=== PATIENT | female | born 1965 | race Caucasian/White ===

== ENCOUNTER 2020-04-05 13:30 | Outpatient (CLI) | payer BC, SELFPAY ==
--- NOTE | ~2020-04-05 | MM_ITS ---
EXAMINATION: MM screening [facility] BI w ernesto HISTORY: Screening mammogram TECHNIQUE: Craniocaudal and mediolateral oblique 3-D tomosynthesis images were obtained and synthetic 2-D images were generated. CAD analysis was submitted and interpreted. COMPARISON: 05/14/2018, 12/06/2016, 11/02/2015 BREAST PARENCHYMAL COMPOSITION: The breasts are heterogeneously dense, which may obscure small masses . FINDINGS: There is no evidence of suspicious mass, calcification, or architectural distortion to sugg est malignancy in either breast. There has been no suspicious interval change. IMPRESSION: 1. No mammographic evidence of malignancy. 2. Recommend routine screening mammography in one year. BI-RADS Category 1: Negative Reviewed, dictated and finalized at location A. YER OPERATOR
== END 2020-04-05 13:31 | disposition home or self-care (01) ==
LOC: ANHIMG 13:33
PROVIDERS: PCP Family Medicine; Visit Provider Student in an Organized Health Care Education/Training Program
DX: Z12.31 Encounter for screening mammogram for malignant neoplasm of breast (principal)
CPT/HCPCS: 77063; 77067

== ENCOUNTER 2021-05-16 00:10 | Day surgery (SDC) | payer BC, SELFPAY ==
[2021-05-03 15:49] VITALS: BMI 20.6
--- NOTE | 2021-05-16 09:26 | PM.HPGS ---
History of Present Illness History of Present Illness Consent: Risks, benefits, and alternatives have been discussed and questions answered. Patient agrees to proceed with procedure. Chief complaint: neoplasm screening Narrative: Felicity Russell is a 55 year old female here for screening colonoscopy, she had one about 10 years ago because abdominal discomfort and was normal. Review of Systems Constitutional: Constitutional: Denies headache(s) and Denies weakness Eyes: Eyes: Denies blurry vision ENT: Reports Normal hearing present, Denies headache(s) and Denies neck pain Cardiovascular: Cardiovascular: Denies chest pain and Denies dyspnea Respiratory: Respiratory: Denies dyspnea Gastrointestinal: Gastrointestinal: Reports no additional gastrointestinal complaints Genitourinary: Genitourinary: Denies dysuria Musculoskeletal: Musculoskeletal: Denies neck pain Integumentary/Breasts: Skin/Breast: Denies dry skin Neurologic: Reports Normal hearing present, Denies headache(s) and Denies weakness Psychiatric: Psychiatric: Denies anxiety Endocrine: Endocrine: Denies change in body appearance Hematologic/Lymphatic: Hematologic/Lymphatic: Denies easy bleeding Allergic/Immunologic: Allergic/Immunologic: Denies urticaria PMFSH Past Medical History Medical History Acute sinusitis, unspecified BMI 21.0-21.9, adult Chronic anxiety Chronic pain of right ankle Colon cancer screening Contusion, nose Mixed hyperlipidemia Vitamin B12 deficiency anemia Vitamin D deficiency, unspecified Surgical History Surgical History H/O hernia repair History of ankle surgery History of endometrial ablation Family History Family History Grandparent Family history of malignant neoplasm of breast in first degree relative Family history of malignant neoplasm Family history of Alzheimer's disease, Onset Age: 91 Mother Family history of thyroid disease Patient's mother is in good health Family history of colonic diverticulitis Father Patient's father is in good health Other Family history of malignant neoplasm of breast Social History Social History Smoking status: Never smoker Second hand tobacco smoke exposure: No Alcohol intake: current Drinks per week: 2 Alcohol use details: WINE Substance use: never Substance use type: does not use Living arrangements: with family Spiritual care concerns: No Meds Home Medications and Allergies Home Medications Medication Instructions Recorded Confirmed Type calcium citrate 315 mg 1 tablet PO DAILY 04/27/19 05/03/21 History calcium-vitamin D3 6.25 mcg (250 unit) tablet multivitamin 1 tablet PO DAILY 04/27/19 05/03/21 History vitamin E 200 unit capsule 200 unit PO DAILY 04/27/19 05/03/21 History cholecalciferol (vitamin D3) 25 1,000 unit PO DAILY 09/23/19 05/03/21 History mcg (1,000 unit) capsule cyanocobalamin (vitamin B-12) 1,000 mcg PO DAILY 03/23/20 05/03/21 History 1,000 mcg tablet venlafaxine 75 mg capsule,extended 75 mg PO DAILY #30 cap 09/21/20 05/03/21 Rx release 24 hr sodium,potassium,mag sulfates See Rx Instructions .ROUTE 05/14/21 Rx [Suprep Bowel Prep Kit] .COMPLEX #1 dose pk Allergies Allergy/AdvReac Type Severity Reaction Status Date / Time No Known Allergies Allergy Verified 05/04/21 14:17 Exam Const: General: comfortable and no acute distress HENMT: General nose exam: Normal nares present Eyes: General: appearance normal, both eyes and all related structures Neck: Neck: no JVD Resp: Auscultation: clear to auscultation bilaterally Cardio: Rate: regular rate Rhythm: regular rhythm GI: Inspection: non-distended GI Palp: Yes Soft to palpation Skin: Genera
[2021-05-16 09:28] VITALS: BP 116/93; PULSE 107; RESP 18; TEMP 36.6; O2SAT 100
[2021-05-16] MEDS: LACTATED RINGERS 1,000 ML 150 ML IV CONT (09:42)
--- NOTE | 2021-05-16 09:46 | WPDANESEPPF ---
Anes - Initial Pre Proc Eval Procedure: Operation Date: 05/16/21 10:30 Proposed Procedures p Screening Colonoscopy - Brodie Palomo MD Date/Time: 05/16/21 09:46 Surgeon: Brodie Palomo MD Pre Op Diagnosis: neoplasm screening Patient Data Age: 55 Gender: F Height: 1.68 m Weight: 57.1 kg Last Vital Signs Temp 97.9 F 05/16/21 09:28 Pulse 107 H 05/16/21 09:28 Resp 18 05/16/21 09:28 BP 116/93 H 05/16/21 09:28 Pulse Ox 100 05/16/21 09:28 Allergies Allergy/AdvReac Type Severity Reaction Status Date / Time No Known Allergies Allergy Verified 05/16/21 09:27 Home Medications Medication Instructions Recorded Confirmed Type calcium citrate 315 mg 1 tablet PO DAILY 04/27/19 05/03/21 History calcium-vitamin D3 6.25 mcg (250 unit) tablet multivitamin 1 tablet PO DAILY 04/27/19 05/03/21 History vitamin E 200 unit capsule 200 unit PO DAILY 04/27/19 05/03/21 History cholecalciferol (vitamin D3) 25 1,000 unit PO DAILY 09/23/19 05/03/21 History mcg (1,000 unit) capsule cyanocobalamin (vitamin B-12) 1,000 mcg PO DAILY 03/23/20 05/03/21 History 1,000 mcg tablet venlafaxine 75 mg capsule,extended 75 mg PO DAILY #30 cap 09/21/20 05/03/21 Rx release 24 hr sodium,potassium,mag sulfates See Rx Instructions .ROUTE 05/14/21 Rx [Suprep Bowel Prep Kit] .COMPLEX #1 dose pk Patient hx anesthesia problems: none Family hx anesthesia problems: none Results Review: All pre-operative results and documents have been reviewed as part of the pre-operative evaluation. [facility] Past Medical History Medical History Acute sinusitis, unspecified BMI 21.0-21.9, adult Chronic anxiety Chronic pain of right ankle Colon cancer screening Contusion, nose Mixed hyperlipidemia Vitamin B12 deficiency anemia Vitamin D deficiency, unspecified Surgical History Surgical History H/O hernia repair History of ankle surgery History of endometrial ablation Family History Family History Grandparent Family history of malignant neoplasm of breast in first degree relative Family history of malignant neoplasm Family history of Alzheimer's disease, Onset Age: 91 Mother Family history of thyroid disease Patient's mother is in good health Family history of colonic diverticulitis Father Patient's father is in good health Other Family history of malignant neoplasm of breast Social History Social History Smoking status: Never smoker Second hand tobacco smoke exposure: No Alcohol intake: current Drinks per week: 2 Alcohol use details: WINE Substance use: never Substance use type: does not use Living arrangements: with family Spiritual care concerns: No Anes - Eval Final PreProcedure Day of Procedure 05/16/21 09:46 Patient weight: normal Heart: regular rate and rhythm Lungs: clear to auscultation Airway: Mallampati scale class II Neurological: alert and oriented ASA classification: II Emergent: no Anesthetic plan: proceed Anesthesia type and monitoring: general GIVS and standard monitoring Results Review: All pre-operative results and documents have been reviewed as part of the pre-operative evaluation. Informed Consent: The patient's anesthetic plan and its attendant risks and benefits were discussed with the patient/family/POA. Questions were solicited and answers provided to the satisfaction of the patient/family/POA.
[2021-05-16 10:10] VITALS: BP 94/65; PULSE 68; RESP 23; O2SAT 100
[2021-05-16 10:20] VITALS: BP 99/68; PULSE 71; RESP 16; O2SAT 100
[2021-05-16 10:30] VITALS: BP 102/73; PULSE 69; RESP 14; O2SAT 100
== END 2021-05-16 10:43 | disposition home or self-care (01) ==
PROVIDERS: PCP Family Medicine; Visit Provider Internal Medicine Gastroenterology
PROC: 0DJD8ZZ Inspection of Lower Intestinal Tract, Via Natural or Artificial Opening Endoscopic (ICD-10-PCS; CPT 45378; principal; 2021-05-16 10:30)
DX: Z12.11 Encounter for screening for malignant neoplasm of colon (principal); D12.4 Benign neoplasm of descending colon; K57.30 Diverticulosis of large intestine without perforation or abscess without bleeding; K64.8 Other hemorrhoids; E78.5 Hyperlipidemia, unspecified; E53.8 Deficiency of other specified B group vitamins; E55.9 Vitamin D deficiency, unspecified; F41.9 Anxiety disorder, unspecified
CPT/HCPCS: 45385; 88305; J2704; J7120

== ENCOUNTER 2021-06-07 16:53 | Outpatient (CLI) | payer BC, SELFPAY ==
--- NOTE | ~2021-06-07 | MM_ITS ---
EXAMINATION: MM screening [facility] w ernesto HISTORY: Screening TECHNIQUE: Craniocaudal and mediolateral oblique 3-D tomosynthesis images were obtained and synthetic 2-D images were generated. CAD analysis was submitted and interpreted. COMPARISON: Comparison to multiple prior studies sequentially, with oldest reviewed study dated 07/2013. BREAST PARENCHYMAL COMPOSITION: The breasts are heterogenously dense, which may obscure small masses FINDINGS: There is no evidence of suspicious mass, calcification, or architectural distortion to sugg est malignancy in either breast. There has been no suspicious interval change. IMPRESSION: 1. No mammographic evidence of malignancy. 2. Recommend routine screening mammography in one year. BI-RADS Category 1: Negative Reviewed, dictated and finalized at location A. ER ETCHER
== END 2021-06-07 16:54 | disposition home or self-care (01) ==
PROVIDERS: PCP Family Medicine; Visit Provider Student in an Organized Health Care Education/Training Program
DX: Z12.31 Encounter for screening mammogram for malignant neoplasm of breast (principal)
CPT/HCPCS: 77063; 77067

== ENCOUNTER 2022-09-23 15:39 | Outpatient (CLI) | payer BC, SELFPAY ==
--- NOTE | ~2022-09-23 | MM_ITS ---
EXAMINATION: MM screening [facility] BI w ernesto HISTORY: Screening mammogram TECHNIQUE: Craniocaudal and mediolateral oblique 3-D tomosynthesis images were obtained and synthetic 2-D images were generated. CAD analysis was submitted and interpreted. COMPARISON: 06/07/2021, 04/05/2020 BREAST PARENCHYMAL COMPOSITION: The breasts are heterogeneously dense, which may obscure small masses . FINDINGS: No suspicious mass, calcification, or architectural distortion are identified in either juan ast to suggest malignancy. There has been no suspicious interval change. IMPRESSION: 1. No mammographic evidence of malignancy. 2. Recommend routine screening mammography in one year. BI-RADS Category 1: Negative Reviewed, dictated and finalized at location A.
== END 2022-09-23 15:40 | disposition home or self-care (01) ==
LOC: ANHIMG 15:48
PROVIDERS: PCP Family Medicine; Visit Provider Registered Nurse
DX: Z12.31 Encounter for screening mammogram for malignant neoplasm of breast (principal)
CPT/HCPCS: 77063; 77067

== ENCOUNTER 2023-02-10 16:20 | Emergency (ER) | payer BC, SELFPAY ==
[2023-02-10 16:44] VITALS: BP 143/89; PULSE 74; RESP 19; TEMP 37.1; O2SAT 99
--- NOTE | 2023-02-10 17:42 | ED.SKABFB ---
HPI - Skin/Abscess/Foreign Bdy General Chief complaint: Skin/Abscess/Foreign Body Stated complaint: Rash Time Seen by Provider: 02/10/23 17:09 Source: patient Mode of arrival: ambulatory Limitations: no limitations History of Present Illness HPI narrative: This is a 57 year old female that presents to the ER for itchy rash. Ongoing over the last 6 days. Reports she was seen by her PCP for this and started on a steroid taper. She has had no relief with this. She was prompted to come to the ER for a steroid shot. She has not been taking any antihistamines. Reports doing yard work prior to rash starting. Denies fevers. Related Data Home Medications Medication Instructions Recorded Confirmed calcium citrate 315 mg 1 tablet PO DAILY 04/27/19 09/10/22 calcium-vitamin D3 6.25 mcg (250 unit) tablet (Citracal + Vitamin D Maximum) multivitamin (Daily Multi-Vitamin 1 tablet PO DAILY 04/27/19 09/10/22 tablet) cholecalciferol (vitamin D3) 25 1,000 unit PO DAILY 09/23/19 09/10/22 mcg (1,000 unit) capsule fluticasone propionate 50 1 spray intranasal BID 09/05/21 09/10/22 mcg/actuation nasal spray,suspension (Flonase Allergy Relief) Allergies Allergy/AdvReac Type Severity Reaction Status Date / Time No Known Allergies Allergy Verified 02/10/23 16:47 Review of Systems Review of Systems: CONSTITUTIONAL: Denies fever SKIN: Reports rash and itching. All systems reviewed & are unremarkable except as noted in HPI and below PMFSH Past Medical History Medical History (Updated 02/10/23 @ 17:48 by Olinda Pedersen PA-C) Acute sinusitis, unspecified Asymptomatic bunion of right foot treated surgically 05/10/2022. BMI 21.0-21.9, adult BMI 22.0-22.9, adult Breast cancer screening by mammogram normal mammogram 09/23/2022. Chronic anxiety Chronic pain of right ankle Colon cancer screening Contusion, nose COVID-19 (10/20/21) tested positive 10/22/2021. Mixed hyperlipidemia Cholesterol 206, triglycerides 81, HDL excellent at 84, LDL 105 with ratio of 2.5 on 08/28/2021. Total cholesterol 236, triglycerides 76, HDL excellent at 96, LDL 123 with ratio of 2.5 on 09/14/2022. No need for treatment. Neoplasm of skin (~07/2021) irritated skin lesion right base of neck Plant allergic contact dermatitis Polyp of colon (05/16/21) 5 mm polyp of the descending colon on 05/16/2021 with recheck in [address] Krishnamurthy Seasonal allergic rhinitis spring Vitamin B12 deficiency anemia Level normal at 422 with hemoglobin 13.0 and folic acid 15.9 on 09/14/2022. Vitamin D deficiency, unspecified Surgical History Surgical History (Updated 08/01/22 @ 15:53 by Felicity Alves MA) H/O hernia repair History of ankle surgery History of bunionectomy of both great toes History of endometrial ablation Family History Family History Grandparent Family history of malignant neoplasm of breast in first degree relative Family history of malignant neoplasm Family history of Alzheimer's disease, Onset Age: 91 Mother Family history of thyroid disease Patient's mother is in good health Family history of colonic diverticulitis Father Patient's father is in good health Other Family history of malignant neoplasm of breast Social History Social History (Updated 08/01/22 @ 15:54 by Felicity Alves MA) Smoking status: Never smoker Second hand tobacco smoke exposure: No Alcohol intake: current Drinks per week: 2 Alcohol use details: WINE Substance use: never Substance use type: does not use Lack of Food: Never True Current Housing: I Have Housing Concerned About Future Housing: No Difficulty Paying Gas/Electric Bills: No Difficulty Paying for Meds: No Currently Unemployed: No Education: Master's Degree or Higher Difficulty w/ Childcare or Family Care: No Living arrangements: with family Occupation/Education: o
[2023-02-10 18:00] VITALS: PULSE 74; RESP 18; O2SAT 98
== END 2023-02-10 18:00 | disposition home or self-care (01) ==
PROVIDERS: Emergency Provider Physician Assistant; PCP Family Medicine
DX: L24.7 Irritant contact dermatitis due to plants, except food (principal); E78.2 Mixed hyperlipidemia; D51.9 Vitamin B12 deficiency anemia, unspecified; E55.9 Vitamin D deficiency, unspecified; F41.9 Anxiety disorder, unspecified; Z85.828 Personal history of other malignant neoplasm of skin; Z86.010 Personal history of colon polyps; Z86.16 Personal history of COVID-19
CPT/HCPCS: 96372; 99283; J1100

== ENCOUNTER 2023-03-21 09:52 | Emergency (ER) | payer BC, SELFPAY ==
[2023-03-21 09:59] VITALS: BP 132/87; PULSE 84; RESP 16; TEMP 36.9; O2SAT 99
[2023-03-21] MEDS: diphenhydrAMINE HCl INJ 50 MG/ML VIAL IV PUSH (11:03)
[2023-03-21] MEDS: FAMOTIDINE 20 MG/2 ML VIAL IV PUSH (11:03)
[2023-03-21] MEDS: methylPREDNISolone SOD SUCC 125 MG VIAL IV PUSH (11:03)
--- NOTE | 2023-03-21 12:22 | ED.SKABFB ---
HPI - Skin/Abscess/Foreign Bdy General Chief complaint: Skin/Abscess/Foreign Body Stated complaint: hives continuing on prednisone Time Seen by Provider: 03/21/23 10:21 History of Present Illness HPI narrative: This is a 57-year-old female, with no significant past medical history, presenting to the emergency department complaining of rash for the past 3 days after starting Keflex. The patient states she was originally started on prednisone after a suspected exposure to poison david 3 weeks ago. During that time, she developed upper respiratory symptoms and was ultimately started on Keflex. 3 days later, she developed a diffuse itching rash on the scalp, forearms and back. She has no other complaints at this time. Related Data Home Medications Medication Instructions Recorded Confirmed calcium citrate 315 mg 1 tablet PO DAILY 04/27/19 09/10/22 calcium-vitamin D3 6.25 mcg (250 unit) tablet (Citracal + Vitamin D Maximum) multivitamin (Daily Multi-Vitamin 1 tablet PO DAILY 04/27/19 09/10/22 tablet) cholecalciferol (vitamin D3) 25 1,000 unit PO DAILY 09/23/19 09/10/22 mcg (1,000 unit) capsule fluticasone propionate 50 1 spray intranasal BID 09/05/21 09/10/22 mcg/actuation nasal spray,suspension (Flonase Allergy Relief) cetirizine 10 mg tablet (Zyrtec) 10 mg PO BID PRN 03/19/23 Allergies Allergy/AdvReac Type Severity Reaction Status Date / Time cefdinir Allergy Intermediate Hives Uncoded 03/19/23 16:11 Review of Systems Review of Systems: CONSTITUTIONAL: Denies fever, chills, or sweats. CARDIOVASCULAR: Denies chest pain, palpitations, or edema. RESPIRATORY: Denies cough or dyspnea. GASTROINTESTINAL: Denies abdominal pain, nausea, vomiting, or diarrhea. GENITOURINARY: Denies dysuria or hematuria. SKIN: Pruritic rash on scalp, back and forearms MUSCULOSKELETAL: Denies back pain, joint pain, or myalgia. NEUROLOGIC: Denies headache, numbness, dizziness, or weakness. PSYCHIATRIC: Denies anxiety or depression. [facility] Past Medical History Medical History Acute sinusitis, unspecified Allergic drug reaction (~03/19/23) hives with cefdinir 03/19/2023. Asymptomatic bunion of right foot treated surgically 05/10/2022. BMI 21.0-21.9, adult BMI 22.0-22.9, adult Breast cancer screening by mammogram normal mammogram 09/23/2022. Chronic anxiety Chronic pain of right ankle Colon cancer screening Contusion, nose COVID-19 (10/20/21) tested positive 10/22/2021. Mixed hyperlipidemia Cholesterol 206, triglycerides 81, HDL excellent at 84, LDL 105 with ratio of 2.5 on 08/28/2021. Total cholesterol 236, triglycerides 76, HDL excellent at 96, LDL 123 with ratio of 2.5 on 09/14/2022. No need for treatment. Neoplasm of skin (~07/2021) irritated skin lesion right base of neck Plant allergic contact dermatitis Polyp of colon (05/16/21) 5 mm polyp of the descending colon on 05/16/2021 with recheck in [address] Krishnamurthy Seasonal allergic rhinitis spring Vitamin B12 deficiency anemia Level normal at 422 with hemoglobin 13.0 and folic acid 15.9 on 09/14/2022. Vitamin D deficiency, unspecified Surgical History Surgical History H/O hernia repair History of ankle surgery History of bunionectomy of both great toes History of endometrial ablation Family History Family History Grandparent Family history of malignant neoplasm of breast in first degree relative Family history of malignant neoplasm Family history of Alzheimer's disease, Onset Age: 91 Mother Family history of thyroid disease Patient's mother is in good health Family history of colonic diverticulitis Father Patient's father is in good health Other Family history of malignant neoplasm of breast Social History Social History (Reviewed 03/23/23 @ 07:00 by Jeferson
== END 2023-03-21 12:45 | disposition home or self-care (01) ==
PROVIDERS: Emergency Provider Preventive Medicine Aerospace Medicine; PCP Family Medicine
DX: R21 Rash and other nonspecific skin eruption (principal); E78.2 Mixed hyperlipidemia
CPT/HCPCS: 96374; 96375; 99284; J1200; J2930

== ENCOUNTER 2023-10-23 16:39 | Outpatient (CLI) | payer BC, SELFPAY ==
--- NOTE | ~2023-10-23 | MM_ITS ---
EXAMINATION: MM screening [facility] w ernesot HISTORY: Screening TECHNIQUE: Craniocaudal and mediolateral oblique 3-D tomosynthesis images were obtained and synthetic 2-D images were generated. CAD analysis was submitted and interpreted. COMPARISON: Comparison to multiple prior studies sequentially, with oldest reviewed study dated 01/2016. BREAST PARENCHYMAL COMPOSITION: Dense: The breasts are extremely dense, which lowers the sensitivity of mammography. FINDINGS: There is no evidence of suspicious mass, calcification, or architectural distortion to sugg est malignancy in either breast. There has been no suspicious interval change. IMPRESSION: 1. No mammographic evidence of malignancy. 2. Recommend routine screening mammography in one year. BI-RADS Category 1: Negative Reviewed, dictated and finalized at location B.
== END 2023-10-23 16:40 | disposition home or self-care (01) ==
PROVIDERS: PCP Family Medicine; Visit Provider Nurse Practitioner Family
DX: Z12.31 Encounter for screening mammogram for malignant neoplasm of breast (principal)
CPT/HCPCS: 77063; 77067

== ENCOUNTER 2024-10-16 09:51 | Outpatient (CLI) | payer BC, SELFPAY ==
--- NOTE | ~2024-10-16 | US_ITS ---
EXAM: PELVIC ULTRASOUND HISTORY: R10.2 - Pelvic and perineal pain . 2 para 2. Postmenopausal. COMPARISON: 06/08/2010 FINDINGS: UTERUS: 6.4 x 2.5 x 3.5 cm. The uterus is anteverted and anteflexed. The endometrial complex measures 1.9 mm. Multiple calcifications and trace free fluid are identified within the cervical canal, an appearance which is unchanged from 2011. RIGHT OVARY: The right ovary is unremarkable in echogenicity and size measuring 1.5 x 1.0 x 1.2 cm. Dopplerable flow is identified. LEFT OVARY: Despite prolonged interrogation, the left ovary was not visualized. No free fluid is identified within the pelvis. IMPRESSION: Multiple punctate calcifications within the cervical canal, unchanged from 2010 with trace free fluid . Despite prolonged interrogation, the left ovary was not visualized. The right ovary is unremarkable. Reviewed, dictated and finalized at location A. IMPRESSION: Multiple punctate calcifications within the cervical canal, unchanged from 2010 with trace free fluid. Despite prolonged interrogation, the left ovary was not visualized. The right ovary is unremarkable.
--- OUTSIDE RECORDS SUMMARY | 2024-10-16 09:54 | XMS_ITS | Patient Health Record ---
Author Organization [facility] Address [address] [place], [place] [id number] Care Team Providers Care Supervisor Shuttle Preparation Name Role Phone CROW AVILES Unavailable [phone] Wilian Fung Unavailable Unavailable CROW RODRIGUEZ Unavailable [phone] Allergies Allergen (clinical drug ingredient) Drug/Non Drug Allergy documented on EMR Reaction Allergy Type Onset Date Status cefdinir Cefdinir Unknown Drug Allergy Active Reason For Referral No Information Immunizations Vaccine Route Administration Date Status Comme nts Pneumococcal conjugate PCV 13 Unknown 08/12/2024 Admini stered Influenza, high dose seasonal Unknown 08/12/2024 Admini stered Vital Signs Height-cm 167.64 cm 05/13/2024 Weight-kg 56.7 kg 05/13/2024 Height 66.00 in 05/13/2024 Weight 125 lbs 05/13/2024 BMI 20.17 kg/m2 05/13/2024 Encounters Encounter Location Date Provider Diagnosis [facility] [place] [address] [facility] [address] [place], [place] [id number] 12/01/2023 CROW SNOOK Hallux rigidus, left foot M20.22 ; Pain due to internal orthopedic prosthetic devices, implants and grafts, subsequent encounter T84.84XD and Left foot pain M79.672 [facility] [address] [place], [place] [id number] 05/07/2024 CROW SNOOK [facility] [address] [facility] [address] [place], [place] [id number] 05/13/2024 CROW SNOOK Hallux rigidus, left foot M20.22 ; Pain due to internal orthopedic prosthetic devices, implants and grafts, subsequent encounter T84.84XD ; Left foot pain M79.672 and Encounter for other specified surgical aftercare Z48.[address] [facility] [address] [facility] [address] [place], [place] [id number] 06/01/2024 CROW SNOOK Hallux rigidus, left foot M20.22 ; Pain due to internal orthopedic prosthetic devices, implants and grafts, subsequent encounter T84.84XD ; Encounter for other specified surgical aftercare Z48.89 and Pain in right foot M79.671 [facility] [place] [address] [facility] [address] [place], [place] [id number] 06/16/2024 CROW SNOOK Hallux rigidus, left foot M20.22 ; Left foot pain M79.672 and Encounter for other specified surgical aftercare Z48.89 [facility] [address] [facility] [address] [place], [place] [id number] 05/07/2024 CROW FARRISANN-MARIE Assessments Encounter Date Diagnosis (ICD Code) Assessment Notes Treatment Notes Treatment Clinical Notes Section Notes 12/01/2023 Hallux rigidus, left foot (ICD-10 - M20.22) Hallux Limitus: Discussed various treatments with the patient regarding hallux limitus deformity. Discussed conservative care consisting of padding, wider shoes, anti-inflammatori es, and orthotics. Discussed surgical treatment options and answered all questions about the intra-operative and post-operative treatment course. Hallux Limitus Surgical Consult We discussed both conservative and surgical treatment options. We discussed the intra-operative and post-operative treatment course. We discussed the risks and complications including, but not limited to: pain, infection, swelling, numbness, under-correction, over-correction, stiffness, no improvement, and need for further surgery. No guarantees were given, nor implied. Questions encouraged and answered. Surgical Consent The patient understands there are no guarantees. There is a chance of: 1. Infection 2. Failure or rejection of implant 3. Overcorrection 4. Undercorrection 5. Non resolution of the problem 6. Transfer lesions to adjacent metatarsals 7. Return of the problem 8. Numbness 9. Anesthetic reaction 10. Healing problems or blood clot 11. Additional or revisional surgery may be required if complications occur The patient had no further question and has agreed to undergo surgical correction of the admitting diagnosis. Patient has signed the written consent form at this time. Plan for Robbins Velez Bunionectomy with implant 12/01/2023 Pain due to internal orthopedic prosthetic devices, implants and grafts, subsequent encounter (ICD-10 - T84.84XD) Painful Hardware: Surgical Consult: We discussed both conservative and surgical treatment options. We discussed the intra-operative and post-operative treatment course. We discussed the risks and complications including, but not limited to: pain, infection, swelling, numbness, under-correction, over-correction, stiffness, no improvement, and need for further surgery. No guarantees were given, nor implied. Questions encouraged and answered. Consent reviewed and placed in chart. The following procedures are proposed: Hardware removal left foot 05/13/2024 Hallux rigidus, left foot (ICD-10 - M20.22) Dressing Change: The old dressing was removed. Utilizing aseptic technique, a new sterile compression dressing was applied. Patient was instructed to keep it dry and not remove it. Continue post-operative restrictions. Keep foot and dressing dry. Wear surgical shoe at all times when bearing weight. Decrease activity. 05/13/2024 Pain due to internal orthopedic prosthetic devices, implants and grafts, subsequent encounter (ICD-10 - T84.84XD) Painful Hardware: Surgical Consult: We discussed both conservative and surgical treatment options. We discussed the intra-operative and post-operative treatment course. We discussed the risks and complications including, but not limited to: pain, infection, swelling, numbness, under-correction, over-correction, stiffness, no improvement, and need for further surgery. No guarantees were given, nor implied. Questions encouraged and answered. Consent reviewed and placed in chart. The following procedures are proposed: Hardware removal left foot 06/01/2024 Hallux rigidus, left foot (ICD-10 - M20.22) Suture Removal: The sutures were removed. Surgical Post Operative Visit: Continue post-operative restrictions. Patient may resume normal bathing. Wear surgical shoe at all times when bearing weight. Decrease activity. 06/01/2024 Pain due to internal orthopedic prosthetic devices, implants and grafts, subsequent encounter (ICD-10 - T84.84XD) 06/16/2024 Hallux rigidus, left foot (ICD-10 - M20.22) Surgical Restriction Release: Patient may resume normal bathing. Return to normal shoes. Gradual return to activities as tolerated. Patient instructed to contact the office if any issues arise. 06/16/2024 Left foot pain (ICD-10 - M79.672) 05/13/2024 Left foot pain (ICD-10 - M79.672) 06/16/2024 Encounter for other specified surgical aftercare (ICD-10 - Z48.89) 06/01/2024 Encounter for other specified surgical aftercare (ICD-10 - Z48.89) 12/01/2023 Left foot pain (ICD-10 - M79.672) 05/13/2024 Encounter for other specified surgical aftercare (ICD-10 - Z48.89) 06/01/2024 Pain in right foot (ICD-10 - M79.671) Plan Of Treatment No Information Insurance Providers Payer Name Payer Address Payer Phone Subscriber Number Group Number Insured Name Patient Relationship to Insured Coverage Start Date Coverage End Date [facility] ([facility] ATTN CLAIMS [address] [place] [address] [id number] SURENDRA RAYMUNDO Self - patient is the insured
--- OUTSIDE RECORDS SUMMARY | 2024-10-16 09:55 | XMS_ITS ---
Author Organization [facility] Address [address] [place], [place] [id number] Care Team Providers Care Welfare Service Aide Name Role Phone CROW AVILES Unavailable [phone] Wilian Fung Unavailable Unavailable Allergies Allergen (clinical drug ingredient) Drug/Non Drug Allergy documented on EMR Reaction Allergy Type Onset Date Status cefdinir Cefdinir Unknown Drug Allergy Active REASON FOR VISIT The patient returns 1 week s/p total joint implant arthroplasty of the great toe as well as hardware removal of the 1st ray. She is not taking pain medication and doing great Vital Signs Height 66.00 in 05/13/2024 Weight 125 lbs 05/13/2024 BMI 20.17 kg/m2 05/13/2024 Height-cm 167.64 cm 05/13/2024 Weight-kg 56.7 kg 05/13/2024 Encounters Encounter Location Date Provider Diagnosis [facility] [place] [address] [facility] [address] [place], [place] [id number] 05/13/2024 CROW AVILES Hallux rigidus, left foot M20.22 ; Pain due to internal orthopedic prosthetic devices, implants and grafts, subsequent encounter T84.84XD ; Left foot pain M79.672 and Encounter for other specified surgical aftercare Z48.89 Assessments Encounter Date Diagnosis (ICD Code) Assessment Notes Treatment Notes Treatment Clinical Notes Section Notes 05/13/2024 Hallux rigidus, left foot (ICD-10 - [...] are proposed: Hardware removal left foot 05/13/2024 Left foot pain (ICD-10 - M79.672) 05/13/2024 Encounter for other specified surgical aftercare (ICD-10 - Z48.89) Plan Of Treatment Treatment Notes Assessment Notes Hallux rigidus, left foot Dressing Change: The old dressing was removed. Utilizing aseptic technique, a new sterile compression dressing was applied. Patient was instructed to keep it dry and not remove it. Continue post-operative restrictions. Keep foot and dressing dry. Wear surgical shoe at all times when bearing weight. Decrease activity. Pain due to internal orthope dic prosthetic devices, implants and grafts, subsequent encounter Painful Hardware: Surgical Consult: We discussed both [...] procedures are proposed: Hardware removal left foot Next Appt Details Follow Up: 2 Weeks, Reason: Repeat xrays 3 views of the left foot. Remove sutures. Continue surgical shoe Progress Notes * MALINDA RAYMUNDOB: [birth year] (59 yo F)Acc No.[id number]:05/13/2024 Patient: Rita SURENDRA WAGNER Provider: Josy Aviles DPM :1965 A ge:58 Y S ex:Female Date:05/13/2024 Address:[address] [place], [place] [id number] Subjective: * Chief Complaints: * 1 . The patient returns 1 week s/p total joint implant arthroplasty of the great toe as well as hardware removal of the 1st ray. She is not taking pain medication and doing great. * HPI: H PI: Follow Up Visit P willian presents for follow up visit for first post operative on the left foot. Patient states it is going great and she stopped taking pain medication the day after surgery. , MA: JHOANA. * Medical History: M edical History Verified. * Surgical History: D enies Past Surgical History. * Hospitalization/Major Diagno stic Procedure: D enies Past Hospitalization. * Family History: F ather: PRN - Father: :: Bladder infection,,known absent . M other: PRN - Mother: :: Thyroid Dz,,known absent . B rother: SIB - Brother: . S ister: SIB - Sister: . * Social History: M igrated Social History: M igrated Social History: Smoking Status : Never used tobacco , History of tobacco use : , Alcohol intake :. * Medications: N one * Allergies: C efdinir. Objective: * Vitals: W t:125lbs, Wt-k.7 kg, Ht: 66.00 in, Ht-cm: 167.64 cm, BMI:20.17Index, Body Surface Area: 1.62. * Examination: D ermatologic: Skin findings: T he dressing is clean and dry. Sutures are in place. No erythema, calor, active drainage, or dehiscence noted. V ascular: Post Op E elsie is consistent for post-operative treatment course. N eurologic: Gross sensation G ross sensation is intact to light touch.? M usculoskeletal: Post Op N o calf pain noted. R adiographs: Left Foot X rays reveal good correction of the deformities and position of the osteotomies. All hardware is in good position. Assessment: * Assessment: 1. H allux rigidus, left foot - M20.22 (Primary) 2 . P ain due to internal orthopedic prosthetic devices, implants and grafts, subsequent encounter - T84.84XD 3 . L eft foot pain - M79.672 4 . E ncounter for other specified surgical aftercare - Z48.89 Plan: * Treatment: 2. P ain due to internal orthopedic prosthetic devices, implants and grafts, subsequent encounter Notes: Painful Hardware: Surgical Consult: We discussed both [...] procedures are proposed: Hardware removal left foot * Immunizations: Immunization record has been reviewed and updated. * Procedure Codes: 9 9024 POSTOP FOLLOW-UP VISIT, 40429 X-RAY EXAM OF FOOT, Modifiers: LT * Follow Up: 2 Weeks (Reason: Repeat xrays 3 views of the left foot. Remove sutures. Continue surgical shoe) * Billing Information: * Visit Code: * Procedure Codes: 98306 POSTOP FOLLOW-UP VISIT. 60264 X-RAY EXAM OF FOOT. Modifiers: LT * Electronic signature of CROW AVILES DPM on 10/16/2024 at 09:54 AM CDT Sign off status: Pending * Provider: Josy Aviles DPM Date: 07/14/2023 Generated for Charlotte joaquin/Tereso/Amandaitting on: 0 10/16/2024 09:54 AM CDT History and Physical Notes * HPI (History of Present Illness) Category Sub-Category Detail Notes Category Not es HPI Follow Up Visit Patient presents for follow up visit for first post operative on the left foot. Patient states it is going great and she stopped taking pain medication the day after surgery. , MA: JHOANA Examination Category Sub-Category Detail Notes Category Not es Dermatologic Skin findings: The dressing is clean and dry. Sutures are in place. No erythema, calor, active drainage, or dehiscence noted Neurologic Gross sensation Gross sensation is intact to light touch Vascular Post Op Edema is consist ent for post-operative treatment course Musculoskeletal Post Op No calf pain noted Radiographs Left Foot Xrays reveal goo d correction of the deformities and position of the osteotomies. All hardware is in good position
== END 2024-10-16 09:52 | disposition home or self-care (01) ==
PROVIDERS: PCP Family Medicine; Visit Provider Nurse Practitioner Family
DX: R10.2 Pelvic and perineal pain (principal)
CPT/HCPCS: 76830

== ENCOUNTER 2025-01-16 16:42 | Emergency (ER) | payer BC, SELFPAY ==
[2025-01-16 17:00] VITALS: BP 135/97; PULSE 68; RESP 20; TEMP 36.7; O2SAT 100
--- NOTE | 2025-01-16 17:42 | ED.GENADULT ---
HPI - General Adult General Chief complaint: Eye Problems Stated complaint: L EYE PAIN Source: patient Mode of arrival: ambulatory Limitations: no limitations History of Present Illness HPI narrative: Patient presents for evaluation of left eye irritation. Symptom onset two days ago. The day of symptom onset she felt like there was something stuck in her eye. Her symptoms improved yesterday but she had recurrence today. She reports some sensitivity to light. Denies visual disturbance per se. She does have discomfort in that eye and notes some tearing. Denies any itching or thick drainage from left eye. She had her annual eye exam last Friday. She has an underlying history of glaucoma and states her pressures were normal at that time. She states her eye exam was normal. She is continue to use her eye drops as prescribed. She does wear contacts and removed the contact from the left eye. She actually feels like her symptoms are worse since taking her contact out. 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 Related Data Home Medications ?Medication ?Instructions ?Recorded ?Confirmed ?Last Taken ?Type calcium 315 mg (as 1 tablet PO DAILY 04/27/19 10/25/24 Unknown History citrate)-vitamin D3 6.25 mcg (250 unit) tablet (Citracal + Vitamin D Maximum) multivitamin (Daily Multi-Vitamin 1 tablet PO DAILY 04/27/19 10/25/24 Unknown History tablet) cholecalciferol (vitamin D3) 25 1,000 unit PO DAILY 09/23/19 10/25/24 Unknown History mcg (1,000 unit) capsule latanoprost 0.005 % eye drops 1 drp EACH EYE DAILY 04/19/24 01/16/25 Unknown History calcium carbonate 500 mg PO DAILY 08/18/24 10/25/24 Unknown History glucosamine-chondroitin 250 mg-200 2 tablet PO TID 08/18/24 10/25/24 Unknown History mg tablet (Osteo Bi-Flex) magnesium carb,citrate,oxide mg PO 08/18/24 10/25/24 Unknown History cyanocobalamin (vitamin B-12) 1,000 mcg PO DAILY 10/25/24 10/25/24 Unknown History 1,000 mcg tablet Allergies Allergy/AdvReac Type Severity Reaction Status Date / Time cefdinir Allergy Intermediate Hives Uncoded 08/24/25 17:05 Review of Systems Review of Systems: CONSTITUTIONAL: Denies fever, chills, or sweats. EYES: reports sensation that there is something stuck in her left eye. Reports pruritus and tearing. Reports sensitivity to light and pain. Denies visual disturbance. Denies symptoms in the right eye. ENT: Denies rhinorrhea, congestion, sore throat, or otalgia. CARDIOVASCULAR: Denies chest pain, palpitations, or edema. RESPIRATORY: Denies cough or dyspnea. GASTROINTESTINAL: Denies abdominal pain, nausea, vomiting, or diarrhea. GENITOURINARY: Denies dysuria or hematuria. SKIN: Denies rash or itching. MUSCULOSKELETAL: Denies back pain, joint pain, or myalgia. NEUROLOGIC: Denies headache, numbness, dizziness, or weakness. PSYCHIATRIC: Denies anxiety or depression. [facility] Past Medical History Medical History Hallux limitus of left foot Joint replacement 2023. Pre-op evaluation Bronchitis Allergic drug reaction (~03/19/23) hives with cefdinir 03/19/2023. Plant allergic contact dermatitis Breast cancer screening by mammogram normal mammogram 09/23/2022. Normal mammogram 10/23/2023. Asymptomatic bunion of right foot treated surgically 05/10/2022. COVID-19 (10/20/21) tested positive 10/22/2021. Neoplasm of skin (~07/2021) irritated skin lesion right base of neck BMI 22.0-22.9, adult Seasonal allergic rhinitis spring Polyp of colon (05/16/21) 5 mm polyp of the descending colon on 05/16/2021 with recheck in [address] Krishnamurthy BMI 21.0-21.9, adult Colon cancer screening Acute sinusitis, unspecified Vitamin B12 deficiency anemia Level normal at 422 with hemoglobin 13.0 and folic acid 15.9 on 09/14/2022. Level low at 367 with goal greater than 400 with hemoglobin 13.8 on 05/01/2024. Contusion, nose Vitamin D deficiency, unspecified Level low at 27 on 05/01/2024. Mixed hyperlipidemia Cholesterol 206, triglycerides 81, HDL excellent at 84, LDL 105 with ratio of 2.5 on 08/28/2021. Total cholesterol 236, triglycerides 76, HDL excellent at 96, LDL 123 with ratio of 2.5 on 09/14/2022. No need for treatment. cholesterol 243, triglycerides 69, HDL 100, LDL 127 with ratio 2.4 on 05/01/2024. Chronic pain of right ankle Chronic anxiety Surgical History Surgical History History of bunionectomy of both great toes History of ankle surgery H/O hernia repair History of endometrial ablation Family History Family History Grandparent Family history of malignant neoplasm of breast in first degree relative Family history of malignant neoplasm Family history of Alzheimer's disease, Onset Age: 91 Mother Family history of thyroid disease Patient's mother is in good health Family history of colonic diverticulitis Father Patient's father is in good health Other Family history of malignant neoplasm of breast Social History Social History Smoking status: Never smoker Second hand tobacco smoke exposure: No Alcohol intake: current Drinks per week: 2 Alcohol use details: WINE Substance use: never Substance use type: does not use Lack of Food: Never True Current Housing: I Have Housing Concerned About Future Housing: No Difficulty Paying Gas/Electric Bills: No Difficulty Paying for Meds: No Currently Unemployed: No Education: Master's Degree or Higher Difficulty w/ Childcare or Family Care: No Living arrangements: with family Occupation/Education: occupation Gender identity (if verbalized by the patient): Female Sexual Orientation (if Verbalized by the Patient): Straight or Heterosexual Spiritual care concerns: No Exam Narrative: GENERAL: Well-appearing, well-nourished, and in no acute distress. HEAD: Normocephalic, atraumatic. EYES: PERRLA and EOMI. There is a pinpoint area of dye uptake noted at the 3 o'clock position of the left eye. There is tearing present. ENT: Nares clear, no rhinorrhea or epistaxis. Mucous membranes moist. Oropharynx without tonsillar hypertrophy exudate or other lesions. Bilateral TMs pearly paulino nonbulging NECK: Supple. No adenopathy or masses. No carotid bruits or JVD CHEST: Clear to auscultation. No respiratory distress. No wheezes rales or rhonchi HEART: Regular rate and rhythm. No murmur heard. Normal peripheral pulses. ABDOMEN: Soft, nontender, nondistended, normal active bowel sounds. EXTREMITIES: Normal range of motion. No edema. SKIN: Warm, dry, no rash. NEURO: No focal deficits. Alert and oriented x3. PSYCH: Normal mood and affect. Course Course Emergency Course: This is a 59 year female who presented for evaluation of a suspected foreign body in the left eye. I did appreciate a pinpoint area of dye uptake noted. I attempted to remove with q tip and with irrigation, unsuccessfully. attempted to contact patient's eye doctor, Dr. Clifton Ya. I left him a message to return my call. Patient and I discussed options and she is agreeable to plans for transfer to higher level of care. I discussed all relevant facts of case with Dr. Monreal, ophthalmology at [facility]. He indicates his service can evaluate patient in the emergency department. Crystal RN, advises that Dr Byers will accept patient for transfer there. Patient was agreeable with plan. Patient transferred via private vehicle Level of Care: Express Care Visit Vital Signs Vital signs: Vital Signs Temperature 36.7 C 01/16/25 17:00 Pulse Rate 68 01/16/25 17:00 Respiratory Rate 20 01/16/25 17:00 Blood Pressure 135/97 H 01/16/25 17:00 Pulse Oximetry 100 01/16/25 17:00 Oxygen Delivery Room Air 01/16/25 17:00 Temperature 36.7 C 01/16/25 17:00 Pulse Rate 68 01/16/25 17:00 Respiratory Rate 20 01/16/25 17:00 Blood Pressure 135/97 H 01/16/25 17:00 Pulse Oximetry 100 01/16/25 17:00 Oxygen Delivery Room Air 01/16/25 17:00 Medical Decision Making Vital Signs Vital Signs: Vital Signs Temperature 36.7 C 01/16/25 17:00 Pulse Rate 68 01/16/25 17:00 Respiratory Rate 20 01/16/25 17:00 Blood Pressure 135/97 H 01/16/25 17:00 Pulse Oximetry 100 01/16/25 17:00 Oxygen Delivery Room Air 01/16/25 17:00 Temperature 36.7 C 01/16/25 17:00 Pulse Rate 68 01/16/25 17:00 Respiratory Rate 20 01/16/25 17:00 Blood Pressure 135/97 H 01/16/25 17:00 Pulse Oximetry 100 01/16/25 17:00 Oxygen Delivery Room Air 01/16/25 17:00 Discharge Plan Discharge Clinical Impression: Foreign body in eye Qualifiers: Encounter type: initial encounter Laterality: left Qualified Code(s): T15.92XA - Foreign body on external eye, part unspecified, left eye, initial encounter Patient Disposition: Acute Care Hospital Condition: Stable Patient Language: Greenlandic Prescriptions: No Action cyanocobalamin (vitamin B-12) 1,000 mcg tablet 1,000 mcg PO DAILY latanoprost 0.005 % drops 1 drp EACH EYE DAILY calcium citrate-vitamin D3 [Citracal + D Maximum] 315 mg- 250 unit tablet 1 tablet PO DAILY multivitamin [Daily Multi-Vitamin] Tablet 1 tablet PO DAILY cholecalciferol (vitamin D3) 25 mcg (1,000 unit) capsule 1,000 unit PO DAILY calcium carbonate 500 mg calcium (1,250 mg) tablet 500 mg PO DAILY glucosamine-chondroitin [Osteo Bi-Flex] 250-200 mg tablet 2 tablet PO TID Rx Instructions: give after food/meal magnesium carb,citrate,oxide 300 mg magnesium tablet PO venlafaxine [Effexor XR] 75 mg capsule,extended release 24hr 75 mg PO DAILY Qty: 30 11RF Follow-up/Referrals: Wilian Fung MD [Primary Care Provider, Family Practice] Time of Disposition: 18:54
[2025-01-16] MEDS: DACRIOSE EYE IRRIGATION 118 ML BOTTLE LEFT EYE (17:47)
[2025-01-16] MEDS: FLUORESCEIN SOD 1 MG/STRIP LEFT EYE (17:48)
[2025-01-16] MEDS: TETRACAINE HCL 0.5% OPHTH SOLN 4 ML BTL LEFT EYE (17:48)
--- NOTE | 2025-01-16 18:46 | PC.NURSE ---
1812 PLASTIC ROLLER in room for patient evaluation; Discussing options with patient for further treatment.
--- NOTE | 2025-01-16 18:48 | PC.NURSE ---
[id number] TIMBER CRUISER spoke to [facility] opthamology and will be seen in the [facility] for further evaluation. Patient in agreement with plan; her will provide transportation.
== END 2025-01-16 18:50 | disposition short-term general hospital (02) ==
PROVIDERS: Emergency Provider Nurse Practitioner; PCP Family Medicine
DX: T15.92XA Foreign body on external eye, part unspecified, left eye, initial encounter (principal); W44.9XXA Unspecified foreign body entering into or through a natural orifice, initial encounter; E78.2 Mixed hyperlipidemia; E55.9 Vitamin D deficiency, unspecified; E53.8 Deficiency of other specified B group vitamins; F41.9 Anxiety disorder, unspecified; Z85.828 Personal history of other malignant neoplasm of skin; Z86.16 Personal history of COVID-19
CPT/HCPCS: 65205; 99213; A9270; G0463; J7030